=== PATIENT | female | born 1980 | race Two or more races ===

== ENCOUNTER 2016-04-20 14:21 | Emergency (ER) | payer OTHER ==
[2016-04-20 14:51] VITALS: BP 129/89; PULSE 82; RESP 16; TEMP 98.8; O2SAT 96
--- NOTE | 2016-04-20 15:22 | UCPHY ---
H & P Patient Type: New Smoking Status: Never smoked Time Seen by Provider: 04/20/16 15:17 HPI/ROS: HPI: 36-year-old female presents to urgent care with chief concern right posterior rib pain and mild shortness of breath after a fall on the ice when she slipped and fell at work at [employer] in the parking lot at 2: 00 p.m. today. Denies striking her head. Denies dizziness, headache, visual changes, neck pain, chest pain, nausea or vomiting. No incontinence of bowel or bladder. No weakness, numbness, or tingling extremities. No incontinence of bowel or bladder. No low back pain. Had no discomfort prior to fall. ROS:10 point review of systems is negative other than as stated in HPI (Tri Escamilla) Physical Exam: Vital signs stable, reviewed by me General: Awake, alert, calm, cooperative. No acute distress. Head: Normalocephalic. Atraumatic. Face: Atraumatic EENT: PERRLA. EOMI. No pallor or injection. Anicteric. No nystagmus. No injection. TMs intact bilaterally with normal landmarks. No rhinnorhea, nasal passages clear. Mouth without dental occlusion. Full range of motion of jaw. Neck: Supple, nontender. Full range of motion. Respiratory: Breathing unlabored. Breath sounds equal bilaterally and clear to auscultation. No adventitious sounds. CV: Chest nontender, atraumatic. Heart rate regular. No murmur, distal pulses 2+ bilaterally. Brisk cap refill all extremities. GI: Abdomen soft, nontender. Bowel sounds normoactive and positive x4 quadrants. : Mild right flank tenderness that is pinpoint and reproducible Neuro: Alert. Oriented x 3. Speech clear. Nonfocal cranial nerves throughout. Sensation intact all extremities. Skin: Skin warm, dry, intact. No rashes, abrasions, or lacerations. Skin turgor normal. Extremities: Full range of motion in all 4 extremities. Strength 5+ all extremities. Musculoskeletal: Pinpoint discomfort right mid lower flank. Reproducible. Full range of motion all extremities without discomfort. (Tri Escamilla) Constitutional: Initial Vital Signs Temperature (C) 37.1 C 04/20/16 14:47 Heart Rate 82 04/20/16 14:47 Respiratory Rate 16 04/20/16 14:47 Blood Pressure 129/89 H 04/20/16 14:47 O2 Sat (%) 96 04/20/16 14:47 O2 Delivery Mode Room Air Allergies/Adverse Reactions: No Known Allergies Allergy (Unverified 04/20/16 14:51) Home Medications: Medication Instructions Recorded NK [No Known Home Meds] 04/20/16 Medical Decision Making - Diagnostics Imaging: Chest and Right Ribs (4 views ) History: Pain post trauma, fell on ice, dyspnea Findings: PA chest - No evidence of pneumothorax, pleural effusion or pulmonary contusion. The mediastinum is not widened. No obvious rib fracture is identified. Right ribs, 3 views- No rib fracture is identified Impression: Negative. Dictated By: Chandana Palmer MD ([facility]) ED Course/Re-evaluation: 36-year-old female presents to urgent care having fallen when she slipped on the ice at 2:00 p.m. at work today. She landed on her right flank. She has discomfort there that is pinpoint in nature, reproducible. It is associated with mild shortness of breath. Lungs are clear to auscultation bilaterally. Oxygen saturation is 96% on room air. Urinalysis negative for RBCs. chest x- ray negative for pneumothorax or rib fractures. Will have her follow up with occupational health. (Tri Escamilla) Differential Diagnosis: Differential diagnosis includes but is not limited to no particular order rib contusion, kidney contusion, rib fracture, pneumothorax (Tri Escamilla) Other Provider: The patient was evaluated and managed by the nurse practitioner Tri Esc[facility]illa. My co-signature indicates that I have reviewed this chart and I agree with the findings and plan of care as documented. I am the secondary supervising physician. (Makayla Mckeon) - Data Points Laboratory Results: 04/20/16 15:20 Urine Color YELLOW Urine Appearance CLEAR Urine pH 6.5 (5.0-7.5) Ur Specific [place] 1.020 (1.002-1.030) Urine Protein NEGATIVE (NEGATIVE) Urine Ketones TRACE H (NEGATIVE) Urine Blood NEGATIVE (NEGATIVE) Urine Nitrate NEGATIVE (NEGATIVE) Urine Bilirubin NEGATIVE (NEGATIVE) Urine Urobilinogen 0.2 EU (0.2-1.0) Ur Leukocyte Esterase NEGATIVE (NEGATIVE) Urine Glucose NEGATIVE (NEGATIVE) Departure - Departure Disposition: Home, Routine, Self-Care Clinical Impression: Contusion of rib on right side Condition: Good Instructions: Rib Contusion (ED) Additional Instructions: Plan: The x-ray is negative for evidence of fracture or puncture lung. Urinalysis negative for evidence of blood. You may use 600 mg of ibuprofen every 6 hours for fever, inflammation, or pain. Always take ibuprofen with food and stay well hydrated while taking. Do not exceed the maximum allowable dose in a 24 hour period which is 2400 mg. ice every 1-2 hours for 20 minutes for the the next 2-3 days Light activity at work that does not aggravate pain Follow up with occupational health tomorrow without fail with your urinalysis result an your x-ray on disc--When you call to schedule appointment, please let the office know you are an "ER follow up" appointment", call your human resources department at [facility] to find out who they would like you to see for Occupational Health. They will need to provide your full return to work note Referrals: [place],. [Primary Care Provider] - As per Instructions Stand Alone Forms: Work Limited Duty, Work Comp Follow Up - PQRS PQRS Measurement: Not applicable (Tri Escamilla)
[2016-04-20 15:26] LABS: COLOR YELLOW; LEUKOCYTE ESTERASE,URINE NEGATIVE (NEGATIVE); NITRITE,URINE NEGATIVE (NEGATIVE); PH,URINE 6.5 (5.0-7.5)
--- NOTE | 2016-04-20 15:49 | DX ---
Chest and Right Ribs (4 views ) History: Pain post trauma, fell on ice, dyspnea Findings: PA chest - No evidence of pneumothorax, pleural effusion or pulmonary contusion. The medias tinum is not widened. No obvious rib fracture is identified. Right ribs, 3 views- No rib fracture is identified Impression: Negative.
== END 2016-04-20 16:05 | disposition home or self-care (01) ==
LOC: CED 14:21
DX: S20.211A Contusion of right front wall of thorax, initial encounter (principal); W00.0XXA Fall on same level due to ice and snow, initial encounter; Y99.0 Civilian activity done for income or pay
CPT/HCPCS: 71101-PO; 81003-PO; G0463-PO